=== PATIENT | female | born 1965 | race Two or more races ===

== ENCOUNTER 2024-05-25 09:15 | Inpatient (IN) | payer OTHER ==
[~2024-05-25] VITALS: Ht 152.4 cm; Wt 105.7 kg
[2024-05-25 10:22] LABS: Basophils # (auto) 0.1 10 ^3/uL (0-0.2); Basophils % (auto) 0.5 % (0.0-2.0); Eosinophils # (auto) 0.3 10 ^3/uL (0-0.8); Eosinophils % (auto) 2.5 % (0.0-7.0); Hematocrit 35.6 % (36.0-46.0); Lymphocytes % (auto) 17.2 % (10.0-50.0); Mean Corpuscular Hgb Conc. 33.7 g/dL (32.0-36.0); Mean Corpuscular Volume 88.9 fL (80.0-100.0); Monocytes # (auto) 1.5 10 ^3/uL (0-1.3); Monocytes % (auto) 12.3 % (0.0-12.0); Neutrophils % (auto) 67.5 % (37.0-80.0); Platelet Count (auto) 182 10^3/uL (140-450); Red Cell Distribution Width 14.9 % (11.8-14.3); White Blood Cell 11.8 10^3/uL (4.4-10.8)
[2024-05-25 10:32] LABS: Chloride 96 mmol/L (98-107); Potassium 3.4 mmol/L (3.5-5.1); Sodium 131 mmol/L (136-145)
[2024-05-25 10:33] LABS: Anion Gap 9 (5-15); Carbon Dioxide 26 mmol/L (20-31)
[2024-05-25 10:34] LABS: Calcium 9.2 mg/dL (8.7-10.4)
[2024-05-25 10:38] LABS: Glucose 198 mg/dL (74-106)
[2024-05-25 10:39] LABS: BUN/Creatinine Ratio 8.7 (10.0-20.0); Blood Urea Nitrogen 12 mg/dL (9-23)
[2024-05-25] MEDS: POTASSIUM EFFERVESENT TAB 25 MEQ PO ONE (11:47)
[2024-05-25] MEDS: PANTOPRAZOLE 40 MG TAB PO ONE (11:47)
[2024-05-25] MEDS ORDERED: NITROGLYCERIN 0.4 MG SL TAB SL PRN (13:00)
[2024-05-25] MEDS: SODIUM CHLORIDE 0.9% 1,000 ML IV SCH (13:00)
[2024-05-25] MEDS ORDERED: MORPHINE SULFATE INJ 2 MG/ml SYRG IV PRN (13:00)
[2024-05-25] MEDS ORDERED: DOCUSATE SOD 100 MG CAP PO PRN (13:00)
[2024-05-25] MEDS: PANTOPRAZOLE 40 MG/10 ML VIAL INJ IV ONE (13:00)
[2024-05-25] MEDS ORDERED: ONDANSETRON HCL 4 MG/2 ML VIAL IV PRN (13:00)
[2024-05-25] MEDS ORDERED: DEXTROSE (50%) 50ML SYRG IV PRN (13:00)
[2024-05-25 13:38] LABS: Magnesium 1.6 mg/dL (1.6-2.6)
[2024-05-25 13:40] LABS: Phosphorus 1.5 mg/dL (2.4-5.1)
[2024-05-25 16:26] VITALS: PULSE 101; RESP 16; O2SAT 94
[2024-05-25] MEDS ORDERED: METF-370 PO (16:56)
[2024-05-25] MEDS ORDERED: AML5T PO (16:56)
[2024-05-25] MEDS ORDERED: LEVO-849 PO (16:56)
[2024-05-25] MEDS ORDERED: LISI20TA56 PO (16:56)
[2024-05-25 17:00] VITALS: BP 100/49; PULSE 103; RESP 17; TEMP 98.6; O2SAT 93
[2024-05-25] MEDS: ACCU-CHEK COMFORT CURVE STRIP VI SCH (17:47)
[2024-05-25] MEDS: InsuLIN REG 1unit/0.01ml Soln (100units/ml) SC SCH (17:48)
[2024-05-25 21:00] VITALS: BP 132/78; PULSE 78; RESP 18; TEMP 98.7; O2SAT 98
[2024-05-26 01:00] VITALS: BP 105/55; PULSE 105; RESP 16; TEMP 102; O2SAT 90
[2024-05-26 03:38] LABS: Urine Bacteria FEW /hpf (None Seen); Urine Blood TRACE /uL (Negative); Urine Clarity Turbid (Clear); Urine Color Colorless (Yellow); Urine Protein, UAD TRACE (Negative); Urine Specific Gravity 1.008 (1.001-1.035); Urine Urobilinogen Normal (Negative); Urine WBC 159 /hpf (0 - 5); Urine WBC Clumps PRESENT /hpf (None Seen); Urine pH 7.5 (5.0-9.0)
[2024-05-26 05:00] VITALS: BP 115/96; PULSE 107; RESP 18; TEMP 100.3; O2SAT 81
[2024-05-26 06:45] VITALS: TEMP 99.5
[2024-05-26] MEDS ORDERED: PIPERACILLIN-TAZOB 3.375GM 100 ML IV SCH (07:15)
[2024-05-26] MEDS ORDERED: BACDST PO (07:20)
[2024-05-26] MEDS: PIPERACILLIN-TAZOB 3.375GM 100 ML IV SCH (07:39)
[2024-05-26 07:49] LABS: Basophils # (auto) 0 10 ^3/uL (0-0.2); Basophils % (auto) 0.3 % (0.0-2.0); Eosinophils # (auto) 0.3 10 ^3/uL (0-0.8); Eosinophils % (auto) 2.6 % (0.0-7.0); Hematocrit 33.7 % (36.0-46.0); Hemoglobin 11.4 g/dL (12.2-16.2); Lymphocytes # (auto) 2.1 10 ^3/uL (0.4-5.4); Lymphocytes % (auto) 17.2 % (10.0-50.0); Mean Corpuscular Hemoglobin 29.9 pg (28.0-32.0); Mean Corpuscular Hgb Conc. 33.7 g/dL (32.0-36.0); Mean Corpuscular Volume 88.6 fL (80.0-100.0); Monocytes # (auto) 1.9 10 ^3/uL (0-1.3); Monocytes % (auto) 15.1 % (0.0-12.0); Neutrophils # (auto) 8.1 10 ^3/uL (1.6-8.6); Neutrophils % (auto) 64.8 % (37.0-80.0); Platelet Count (auto) 194 10^3/uL (140-450); Red Cell Distribution Width 14.5 % (11.8-14.3); White Blood Cell 12.5 10^3/uL (4.4-10.8)
[2024-05-26 08:17] LABS: Alanine Aminotransferase 49 U/L (7-40); Albumin 3.9 g/dL (3.2-4.8); Alkaline Phosphatase 88 U/L (46-116); Anion Gap 9 (5-15); BUN/Creatinine Ratio 6.7 (10.0-20.0); Blood Urea Nitrogen 9 mg/dL (9-23); Carbon Dioxide 26 mmol/L (20-31); Chloride 100 mmol/L (98-107); Glucose 126 mg/dL (74-106); Potassium 3.1 mmol/L (3.5-5.1); Sodium 135 mmol/L (136-145)
[2024-05-26 08:18] LABS: Aspartate Aminotransferase 31 U/L (13-40); Bilirubin, Total 0.9 mg/dL (0.2-1.0); Total Protein 6.7 g/dL (5.7-8.2)
[2024-05-26 09:00] VITALS: BP 161/70; PULSE 104; RESP 21; TEMP 101.8; O2SAT 94
[2024-05-26] MEDS: ACETAMINOPHEN 325 MG TAB PO PRN (09:15)
[2024-05-26] MEDS: PANTOPRAZOLE 40 MG/10 ML VIAL INJ IV SCH (09:15)
[2024-05-26] MEDS: POTASSIUM CHL 20 Meq TABLET PO ONE (09:30)
[2024-05-26] MEDS: ERTAPENEM SOD INJ 1 GM in SODIUM CHL 0.9% 50 ML IV ONE (11:56)
[2024-05-26 12:59] VITALS: BP 115/73; PULSE 97; RESP 18; TEMP 97.8; O2SAT 90
[2024-05-26 13:00] VITALS: BP 115/73; PULSE 97; RESP 18; TEMP 97.8; O2SAT 90
== END 2024-05-26 14:15 | disposition home or self-care (01) | DRG 241 ==
LOC: ER 09:15 → OVERFLOW 12:55 → CENTRAL 15:36
PROVIDERS: ADMIT Nurse Practitioner Family; ATTEND Internal Medicine
DX: K29.00 Acute gastritis without bleeding (principal); E87.1 Hypo-osmolality and hyponatremia; E11.65 Type 2 diabetes mellitus with hyperglycemia; E78.5 Hyperlipidemia, unspecified; D72.829 Elevated white blood cell count, unspecified; E87.5 Hyperkalemia; N39.0 Urinary tract infection, site not specified; Z90.49 Acquired absence of other specified parts of digestive tract
CPT/HCPCS: 36415; 74176; 80048; 80053; 81001; 82962; 83036; 83690; 83735; 84100; 84484; 85025; 99291; G0378; J1335; J1815; J2470; J2543

== ENCOUNTER 2024-12-24 05:41 | Emergency (ER) | payer OTHER ==
[~2024-12-24] VITALS: Ht 144.8 cm; Wt 96.0 kg
[~2024-12-24 05:41] MED LIST: AML5T PO; BACDST PO; LEVO-849 PO; LISI20TA56 PO; METF-370 PO; NITR-87 PO; PANT40TA2 PO
[2024-12-24] MEDS ORDERED: ONDANSETRON ODT 4 MG TAB PO ONE (06:30)
--- NOTE | 2024-12-24 06:39 | ED.PDOC ---
GI ASSESSMENT HPI Comments 59 year old female presents to the ED with chief complaint of N/V and abdominal pain. Patient reports that she has been experiencing epigastric abdominal pain for the past 15 days, along with nausea and vomiting for the past 3 days, being unable to consume any food or drink. Patient relays that she has had similar episodes twice a month for the past 5 months. Patient states she had an endoscopy performed on 12/15/24, however, she has not received results yet for it from her GI doctor. Patient notes she is currently constipated. Patient reports eating tortillas worsens her pain. Patient denies any diarrhea, fever, chills, hematemesis, chest pain, or dysuria. Chief Complaint: Nausea/Vomiting Time Seen by MD: 06:31 Reviewed Notes: Nurses Notes, Medications, Allergies Allergies: Coded Allergies: NO KNOWN ALLERGIES (Unverified , 05/25/24) Home Meds Active Scripts Pantoprazole Sodium Sesquihydr (Protonix) 40 Mg Tab, 40 MG PO DAILY for 5 Days, #5 TAB Prov:ODILIA DAWN MD 06/11/24 Nitrofurantoin Monohydrate Mac (Macrobid) 100 Mg Cap, 100 MG PO BID for 10 Days, #20 CAP Prov:ODILIA DAWN MD 06/11/24 Sulfamethoxazole W/Trimethopri (Bactrim Ds Tablet) 1 Tab Tb, 1 TAB PO BID for 10 Days, #20 TAB Prov:TIA CARLOS MD 05/26/24 Reported Medications Amlodipine Besylate (NORVASC TABLET) 5 Mg Tb, 1 TAB PO DAILY, #30 TAB 5 Refills 05/25/24 Lisinopril (Lisinopril) 20 Mg Tab, 0.5 TAB PO DAILY, #30 TAB 5 Refills 05/25/24 Levothyroxine Sodium (SYNTHROID TABLET) 100 Mcg Tb, 1 TAB PO DAILY, #30 TAB 5 Refills 05/25/24 Metformin Hydrochloride (Metformin Hcl) 500 Mg Tab, 1 TAB PO BID, #60 TAB 3 Refills 05/25/24 Information Source: Patient Mode of Arrival: Ambulatory Timing: Weeks Duration: Since onset Quality: Sharp Vomitus: Watery Stool: Impaction Severity: Moderate Recent: None Recent Hx of: None Pain Location: Epigastric Modifying Factors: Nothing Associated sign and symptoms: Nausea, Vomiting, Abdominal Pain Past Medical History PAST MEDICAL HISTORY: DM, High Lipids, HTN Past Medical History (Other): chronic abdominal pain Surgical History: Cholecystectomy Surgical History (Other): Endoscopy 12/15/24 TALENT ACQUISITION COORDINATOR History: No Pertinent TALENT ACQUISITION COORDINATOR History Family History Family History: Reviewed,noncontributory to illness Social History Smoker: Non-Smoker Alcohol: Denies ETOH Use Drugs: Denies Drug Use Lives In: Home Constitutional: denies: chills, diaphoresis, fatigue, fever, malaise, sweats, weakness, others EENTM: denies: blurred vision, double vision, ear bleeding, ear discharge, ear drainage, ear pain, ear ringing, eye pain, eye redness, hearing loss, mouth pain , mouth swelling, nasal discharge, nose bleeding, nose congestion, nose pain, photophobia, tearing, throat pain, throat swelling, voice changes, others Respiratory: denies: cough, hemoptysis, orthopnea, SOB at rest, shortness of breath, SOB with excertion, stridor, wheezing, others Cardiovascular: denies: chest pain, dizzy spells, diaphoresis, Dyspnea on exertion, edema, irregular heart beat, left arm pain, lightheadedness, palpitations, PND, syncope, others Gastrointestinal: reports: abdominal pain, constipated, nausea, vomiting; denies: abdomen distended, blood streaked bowels, diarrhea, dysphagia, difficulty swallowing, hematemesis, melena, poor appetite, poor fluid intake, rectal bleeding, rectal pain, others Genitourinary: denies: abnormal vagina bleeding, burning, dyspareunia, dysuria, flank pain, frequency, hematuria, incontinence, pain, , vagina discharge, urgency, others Neurological: denies: dizziness, fainting, headache, left sided numbness, left sided weakness, numbness, paresthesia, pre-existing deficit, right sided numbness, right sided weakness, seizure, speech problems, tingling, tremors, weakness, others Musculoskeletal: denies: back pain, gout, joint pain, joint swelling, muscle pain, muscle stiffness, neck pain, others Integumetry: denies: bruises, change in color, change in hair/nails, dryness, laceration, lesions, lumps, rash, wounds, others Allergic/Immunocompromised: denies: Difficulty Healing, Frequent Infections, Hives, Itching, others Hematologic/Lymphatic: denies: anemia, blood clots, easy bleeding, easy bruising, swollen glands, others Endocrine: denies: excessive hunger, excessive sweating, excessive thirst, excessive urination, flushing, intolerance to cold, intolerance to heat, unexplained weight gain, unexplained weight loss, others Psychiatric: denies: anxiety, bipolar disorder, depression, hopeless, panic disorder, schizophrenia, sleepless, suicidal, others All Other Systems: Reviewed and Negative Physical Exam General Appearance: No Apparent Distress, Normal HEENT: Normal ENT Inspection, Pharynx Normal, TMs Normal Neck: Full Range of Motion, Non-Tender, Normal, Normal Inspection Respiratory: Chest Non-Tender, Lungs Clear, No Accessory Muscle Use, No Respiratory Distress, Normal Breath Sounds Cardiovascular: No Edema, No JVD, No Murmur, No Gallop, Normal Peripheral Pulses, Regular Rate/Rhythm Breast Exam: Deferred Gastrointestinal: No Organomegaly, Non Tender, No Pulsatile Mass, Normal Bowel Sounds, Soft Genitalia: Deferred Pelvic: Deferred Rectal: Deferred Extremities: No calf tenderness, Normal capillary refill, Normal inspection, Normal range of motion, Non-tender, No pedal edema Musculoskeletal : Apperance: Normal Neurologic: Alert, travograph operator II-XII nml as Tested, No Motor Deficits, Normal Affect, Normal Mood, No Sensory Deficits Cerebellar Function: Normal Reflexes: Normal Skin: Dry, Normal Color, Warm Lymphatic: No Adenopathy Was a procedure done? Was a procedure done?: No GI differential Dx Differential Diagnosis: Bowel Obstruction, Constipation, Diverticular disease, Gastritis/PUD, Gastroenteritis, Hernia, Hepatitis, Inflammatory BD, Ischemic Bowel, Pancreatitis, UTI, Dehydration, Electrolyte Imbalance, Food Poisoning, Bacterial, Viral, Impaction, Kidney Stone X-Ray, Labs, Meds, VS Vital Signs Date Time Temp Pulse Resp B/P (MAP) Pulse Ox O2 Delivery O2 Flow Rate FiO2 12/24/24 07:31 98.0 98 24 113/72 (86) 98 98.0 12/24/24 07:31 98 22 94 Room Air 12/24/24 06:10 98.0 98 22 113/72 (86) 24 98.0 Lab Test 12/24/24 06:43 Range/Units White Blood Count 7.1 4.4-10.8 10^3/uL Red Blood Count 4.39 4.0-5.20 10^6/uL Hemoglobin 13.1 12.2-16.2 g/dL Hematocrit 37.7 36.0-46.0 % Mean Corpuscular Volume 85.7 80.0-100.0 fL Mean Corpuscular Hemoglobin 29.8 28.0-32.0 pg Mean Corpuscular Hemoglobin Concent 34.8 32.0-36.0 g/dL Red Cell Distribution Width 14.6 H 11.8-14.3 % Platelet Count 193 140-450 10^3/uL Mean Platelet Volume 9.2 6.9-10.8 fL Neutrophils (%) (Auto) 52.5 37.0-80.0 % Lymphocytes (%) (Auto) 32.0 10.0-50.0 % Monocytes (%) (Auto) 6.9 0.0-12.0 % Eosinophils (%) (Auto) 7.8 H 0.0-7.0 % Basophils (%) (Auto) 0.8 0.0-2.0 % Neutrophils # (Auto) 3.8 1.6-8.6 10 ^3/uL Lymphocytes # (Auto) 2.3 0.4-5.4 10 ^3/uL Monocytes # (Auto) 0.5 0-1.3 10 ^3/uL Eosinophils # (Auto) 0.6 0-0.8 10 ^3/uL Basophils # (Auto) 0.1 0-0.2 10 ^3/uL Nucleated Red Blood Cells 0.1 % Sodium Level 122 L 136-145 mmol/L Potassium Level 2.7 L 3.5-5.1 mmol/L Chloride Level 85 L 98-107 mmol/L Carbon Dioxide Level 27 20-31 mmol/L Anion Gap 10 5-15 Blood Urea Nitrogen 5 L 9-23 mg/dL Creatinine 0.82 0.550-1.02 mg/dL Glomerular Filtration Rate Calc 83 >90 mL/min BUN/Creatinine Ratio 6.1 L 10.0-20.0 Serum Glucose 135 H 74-106 mg/dL Calcium Level 9.1 8.7-10.4 mg/dL Total Bilirubin 0.5 0.2-1.0 mg/dL Aspartate Amino Transferase (AST) 63 H 13-40 U/L Alanine Aminotransferase (ALT) 60 H 7-40 U/L Alkaline Phosphatase 65 46-116 U/L Total Protein 6.6 5.7-8.2 g/dL Albumin 4.0 3.2-4.8 g/dL Lipase 40 12-53 U/L Current Medications Medications (Trade) Dose Ordered Sig/Benny Route Start Time Stop Time Status Last Admin Al Hydrox/Mg Hydrox/Simethicone (Maalox Plus) 15 ml ONCE ONCE PO 12/24/24 06:30 12/24/24 06:31 DC 12/24/24 07:24 Ondansetron HCl (Zofran) 4 mg ONCE ONCE IM 12/24/24 07:00 12/24/24 07:01 DC 12/24/24 07:24 CT Abd/Pel: FINDINGS: Lung bases: Atelectasis in the lung bases. Respiratory motion artifact limits evaluation for subtle findings. Liver: Hepatic steatosis. Mild hepatomegaly, with the liver measuring up to 16.5 cm in craniocaudal dimension at approximately the mid clavicular line. Biliary: Cholecystectomy. Spleen: Unremarkable. Pancreas: Mildly to moderately atrophic pancreas. Adrenal glands: Unremarkable. No mass. Kidneys: No hydronephrosis. No renal or ureteral calculi. Aorta/Vascular: Scattered mild atherosclerotic calcification. No abdominal aortic aneurysm. Retroperitoneum: No mass or lymphadenopathy. Bowel/mesentery: No small bowel obstruction. No free air or free fluid. Appendix is visualized and appears unremarkable. Scattered colonic diverticula without adjacent inflammatory changes to suggest diverticulitis. Small hiatal hernia. Pelvic organs: Grossly unremarkable. Bladder: Unremarkable. No mass. Abdominal wall: No mass or hernia. Bones: No acute fracture or suspicious intraosseous lesion. IMPRESSION: 1. Scattered colonic diverticula without adjacent inflammatory changes to suggest diverticulitis. 2. Hepatic steatosis and mild hepatomegaly. 3. Small hiatal hernia. 4. Additional nonacute findings as detailed above. Images Reviewed?: Images reviewed and evaluated by me Time of 1ST Reevaluation: 07:31 Reevaluation 1ST: Unchanged Time of 2ND Reevaluation: 07:53 Reevaluation 2ND: Improved Patient Education/Counseling: Diagnosis, Treatment, Prognosis, Need For Follow Up Family Education/Counseling: No Family Present Additional Information Previous visits: 06/11/24 for gastritis The following tests were ordered, and results were reviewed by me: CT Abd/Pel, UA, Lipase, CBC, CMP Additional Information was gathered from interviewing the following independent historians: None I reviewed and agreed with the following test results read by other providers: CT Abd/Pel I discussed treatment and results with medical personnel and: Patient Comprehensive systems review obtained and negative except for what is stated in the HPI. Departure 1 Departure Time of Disposition: 07:54 Impression: Primary Impression: Chronic abdominal pain Additional Impression: Constipation Qualified Codes: K59.01 - Slow transit constipation Disposition: HOME / SELF CARE / HOMELESS Condition: Good e-Prescriptions Docusate Sodium (Colace) 100 Mg Cap 1 CAP PO BID, #30 CAP Prov: DINO BRYANT MD 12/24/24 Polyethylene Glycol 3350 (Miralax) 17 Gm Pow 17 GM PO DAILY PRN for 3 Days, #3 POW Prov: DINO BRYANT MD 12/24/24 Discharged With: Self Critical Care Note Critical Care Time?: No Stability Stability form required: No Heart Score Heart Score: Heart Score Response (Comments) Value History N/A 0 EKG N/A 0 Age N/A 0 Risk Factors N/A 0 Troponin N/A 0 Total 0 I personally scribed for DINO BRYANT MD ([email or web address]) on 12/24/24 at 06:39. Electronically submitted by Nimesh Amaya ([employer]). I personally scribed for DINO BRYANT MD ([email or web address]) on 12/24/24 at 07:38. Electronically submitted by Nimesh Amaya ([employer]). DINO BRYANT MD Dec 24, 2024 06:39
[2024-12-24 06:59] LABS: Basophils # (auto) 0.1 10 ^3/uL (0-0.2); Basophils % (auto) 0.8 % (0.0-2.0); Eosinophils # (auto) 0.6 10 ^3/uL (0-0.8); Eosinophils % (auto) 7.8 % (0.0-7.0); Hematocrit 37.7 % (36.0-46.0); Hemoglobin 13.1 g/dL (12.2-16.2); Lymphocytes # (auto) 2.3 10 ^3/uL (0.4-5.4); Mean Corpuscular Hemoglobin 29.8 pg (28.0-32.0); Mean Corpuscular Hgb Conc. 34.8 g/dL (32.0-36.0); Mean Corpuscular Volume 85.7 fL (80.0-100.0); Monocytes # (auto) 0.5 10 ^3/uL (0-1.3); Monocytes % (auto) 6.9 % (0.0-12.0); Neutrophils # (auto) 3.8 10 ^3/uL (1.6-8.6); Neutrophils % (auto) 52.5 % (37.0-80.0); Nucleated Red Blood Cells % 0.1 %; Platelet Count (auto) 193 10^3/uL (140-450); Red Blood Cells 4.39 10^6/uL (4.0-5.20); Red Cell Distribution Width 14.6 % (11.8-14.3); White Blood Cell 7.1 10^3/uL (4.4-10.8)
[2024-12-24 07:14] LABS: Alkaline Phosphatase 65 U/L (46-116); Anion Gap 10 (5-15); BUN/Creatinine Ratio 6.1 (10.0-20.0); Calcium 9.1 mg/dL (8.7-10.4); Carbon Dioxide 27 mmol/L (20-31); Lipase 40 U/L (12-53); Total Protein 6.6 g/dL (5.7-8.2)
[2024-12-24 07:15] LABS: Bilirubin, Total 0.5 mg/dL (0.2-1.0)
[2024-12-24 07:16] LABS: Alanine Aminotransferase 60 U/L (7-40); Aspartate Aminotransferase 63 U/L (13-40); Blood Urea Nitrogen 5 mg/dL (9-23); Chloride 85 mmol/L (98-107); Glucose 135 mg/dL (74-106); Potassium 2.7 mmol/L (3.5-5.1); Sodium 122 mmol/L (136-145)
[2024-12-24] MEDS: MAALOX PLUS or MAALOX 30 ML PO ONE (07:24)
[2024-12-24] MEDS: ONDANSETRON HCL 4 MG/2 ML VIAL IM ONE (07:24)
[2024-12-24 07:31] VITALS: BP 113/72; PULSE 98; RESP 22; TEMP 98; O2SAT 94
--- NOTE | 2024-12-24 07:34 | DVH ---
CLINICAL INFORMATION: 59 years old, Female; epigastric pain. TECHNIQUE: Axial CT images of the abdomen and pelvis were obtained without IV contrast. Coronal and s agittal reformatted images were obtained, reviewed, and stored. Evaluation of the parenchymal organs is limited without IV contrast. Evaluation of the bowel and mesentery is limited without oral contras t. All CT scans at this medical facility are performed using dose modulation techniques as appropriat e to a performed exam including the following: Automated exposure control was utilized; adjustment of the MA and/or KV according to patient size; and use of iterative reconstruction technique. CTDIvol = 27.53 mGy DLP = 1486.41 mGy-cm COMPARISON: CT CT AB PEL WO CON-NO ORAL OR IV on DOS: 05/25/24 FINDINGS: Lung bases: Atelectasis in the lung bases. Respiratory motion artifact limits evaluation for subtle f indings. Liver: Hepatic steatosis. Mild hepatomegaly, with the liver measuring up to 16.5 cm in craniocaudal d imension at approximately the mid clavicular line. Biliary: Cholecystectomy. Spleen: Unremarkable. Pancreas: Mildly to moderately atrophic pancreas. Adrenal glands: Unremarkable. No mass. Kidneys: No hydronephrosis. No renal or ureteral calculi. Aorta/Vascular: Scattered mild atherosclerotic calcification. No abdominal aortic aneurysm. Retroperitoneum: No mass or lymphadenopathy. Bowel/mesentery: No small bowel obstruction. No free air or free fluid. Appendix is visualized and ap pears unremarkable. Scattered colonic diverticula without adjacent inflammatory changes to suggest d iverticulitis. Small hiatal hernia. Pelvic organs: Grossly unremarkable. Bladder: Unremarkable. No mass. Abdominal wall: No mass or hernia. Bones: No acute fracture or suspicious intraosseous lesion. IMPRESSION: 1. Scattered colonic diverticula without adjacent inflammatory changes to suggest diverticulitis. 2. Hepatic steatosis and mild hepatomegaly. 3. Small hiatal hernia. 4. Additional nonacute findings as detailed above.
[2024-12-24] MEDS ORDERED: DOCU-94 PO (07:55)
[2024-12-24] MEDS ORDERED: POLY335015 PO (07:55)
[2024-12-24] MEDS: POTASSIUM CHL 20 Meq TABLET PO ONE (08:08)
== END 2024-12-24 08:09 | disposition home or self-care (01) ==
LOC: ER 05:41 → EDUNIT# 05:41 → ER 08:09
DX: G89.29 Other chronic pain (principal); R10.13 Epigastric pain; K59.00 Constipation, unspecified; I10 Essential (primary) hypertension; E11.9 Type 2 diabetes mellitus without complications; Z79.84 Long term (current) use of oral hypoglycemic drugs; Z90.49 Acquired absence of other specified parts of digestive tract; Z79.899 Other long term (current) drug therapy
CPT/HCPCS: 36415; 74176; 80053; 83690; 85025; 96372; 99285; J2405

== ENCOUNTER 2025-04-19 22:58 | Emergency (ER) | payer OTHER ==
[~2025-04-19] VITALS: Ht 144.8 cm; Wt 90.9 kg
[~2025-04-19 22:58] MED LIST changes: +DOCU-94 PO; +POLY335015 PO
--- NOTE | 2025-04-19 23:17 | ECG ---
[facility] Test Date: 2025-04-19 Test Time: 23:16:39 Pat Name: NETTIE STEPHENS Department: ED Room: Gender: F Muffle Operator: ARMAAN : 1965 Requested By: OTTONIEL TORRES Order Number: [id number] Reading MD: Measurements Intervals [place] Rate: 93 P: 55 [place]: 141 QRS: 37 QRSD: 98 T: 13 QT: 394 QTc: 491 Interpretive Statements Sinus rhythm Borderline prolonged QT interval Please click the below link to view image of tracing.
--- NOTE | 2025-04-19 23:19 | ED.PDOC ---
SOB-HPI HPI Comments HPI: 59-year-old female came to the ER for hyperglycemia. Patient denies history of diabetes, takes Metformin regularly for it. States for the past few hours, she has been short of breath, with the episodes of nausea. Denies any vomiting. Blood sugar taken at home read high. Upon arrival to the ER blood sugar was 488 Initial Vitals BP: 125/73 HR: 97 RR: 22 O2: 94% Temp: 98.2 Past Medical History: Diabetes, dyslipidemia, thyroid disease Past Surgical History: Cholecystectomy, knee surgery Social History: Denies ETOH, smoking, and drug use. Medications: Metformin Allergies: GAGE: HPI: Poor Historian. REVIEW OF SYSTEMS: CONSTITUTIONAL: Denies acute: fever, diaphoresis, chills, HEAD: Denies acute: headache, photophobia Eyes: Denies acute: Double vision, vision loss, eye pain, eye discharge. EARS: Denies acute: tinnitus, hearing loss, ear discharge, ear pain, THROAT: Denies acute: sore throat, swelling, difficulty swallowing , pain with swallowing, change in voice. NECK: Denies acute: neck pain, neck swelling, stiff neck. HEART: Denies acute : chest pain, palpitations, LUNGS: Denies acute: wheezing, cough, hemoptysis ABDOMEN: Denies acute: abdominal pain, Nausea, Vomiting, diarrhea, melena , hematemesis, hematochezia SKIN: Denies acute: rash, redness, lesions, itchiness. EXTREMITIES: Denies acute: calf pain, numbness, tingling, weakness, denies pain in extremity. Denies acute: Low back pain. Neuro: Denies acute: focal neurological deficit, motor or sensory focal neurological deficit, tremors, seizure like activity, confusion, dizziness, change in mental status, loss of bowel or bladder function, cauda equina like symptoms. : Denies acute: dysuria, hematuria, flank pain, increase in urinary frequency. PSYCH: Denies acute: hallucination, suicidal ideation, homicidal ideation. FEMALE: Denies acute: abnormal vaginal bleeding, foul odor, unusual discharge. PHYSICAL EXAM: General: -----mild---acute distress, awake and alert. Head: normocephalic, atraumatic. Neck: supple, trachea is midline, no swelling. Throat: Normal phonation. Eyes:, no erythema, no purulent discharge, no proptosis, no icterus. Heart: regular rate, regular rhythm, no significant murmur appreciated. Lungs: no apparent respiratory distress, Able to speak in full sentences. No wheezing, no rhonchi, no crackles. No stridors Clear to auscultation bilaterally. Abdomen: non tender to palpation, non distended, soft, no guarding, no rebound, + bowel sounds. Obese Neuro: Awake, Alert, oriented to name, self, situation, follows commands GCS=15. Speech is normal. Skin: no petechia, no purpura, no cyanosis, non-pale, not jaundice. Lower extremities: --no - Pitting edema no deformity, no focal swelling, no calf TTP. Makes eye contact. moves all four extremities. Face: no apparent facial droop. ED COURSE: DISCLAIMER: This medical document was created using an electronic medical record system with voice recognition software and computerized dictation system. Although this document has been carefully reviewed, there might still be some phonetic and typographical errors. Occasional wrong-word or "sound-alike" substitutions may have occurred due to the inherent limitations of voice recognition software. These areas are purely typographical due to imperfections of the software programs and do not reflect any compromise in the patient's medical care. Please read the chart carefully and recognize, using context, where these substitutions have occurred. Chief Complaint: Hyperglycemia Time Seen by MD: 23:16 Reviewed notes: Allergies Information Source: Patient Mode of Arrival: Ambulatory Past Medical History PAST MEDICAL HISTORY: DM, High Lipids, Thyroid Surgical History: Cholecystectomy CERTIFIED LOW VISION THERAPIST History: No Pertinent CERTIFIED LOW VISION THERAPIST History Family History Family History: Reviewed,noncontributory to illness Social History Smoker: Non-Smoker Alcohol: Denies ETOH Use Drugs: Denies Drug Use Lives In: Home EKG EKG : Pulse Rate (adult): 93 Cardiac Rhythm: NSR Was a procedure done? Was a procedure done?: No X-Ray, Labs, Meds, VS Vital Signs Date Time Temp Pulse Resp B/P (MAP) Pulse Ox O2 Delivery O2 Flow Rate FiO2 04/20/25 03:10 97.9 89 16 113/74 (87) 94 97.9 04/19/25 23:24 93 04/19/25 23:16 93 04/19/25 22:59 98.2 97 22 125/73 94 98.2 Lab Test 04/20/25 03:48 04/20/25 02:50 04/20/25 02:34 04/20/25 00:28 Range/Units Urine Color Light-yellow Yellow Urine Clarity Clear Clear Urine pH 6.0 5.0-9.0 Urine Specific [place] > 1.050 H 1.001-1.035 Urine Protein Trace H Negative Urine Ketones Negative Negative Urine Blood Negative Negative /uL Urine Nitrite Negative Negative Urine Bilirubin Negative Negative Urine Urobilinogen Normal Negative mg/dL Urine Leukocyte Esterase Trace Negative /uL Urine RBC 12 0 - 4 /hpf Urine Microscopic WBC 18 H 0-5 /HPF Urine Squamous Epithelial Cells Few <5 /hpf Urine Bacteria None seen None Seen /hpf Urine Glucose 4+ H Normal mg/dL Troponin I High Sensitivity < 3 L < 3 L </=34 ng/L Blood Gas Specimen Type Arterial Blood Gas Sample Site Left brachial Blood Gas Patient Temperature 37.0 Arterial Blood Date Drawn [id number] Arterial Blood pH 7.462 H 7.350-7.450 Arterial Blood Partial Pressure CO2 33.4 32.0-45.0 mmHg Arterial Blood Partial Pressure O2 74.1 L 83.0-108.0 mmHg Arterial Blood HCO3 23.3 21.0-28.0 mmol/L Arterial Blood Oxygen Saturation 94.9 94.0-98.0 % Arterial Blood Base Excess 0.2 -2.0-3.0 mmol/L Arterial Blood Oxyhemoglobin 93.7 L 94.0-98.0 % Arterial Blood Carboxyhemoglobin 0.7 0.5-1.5 % Arterial Blood Methemoglobin 0.6 0.0-1.5 % Wil Test N/a Blood Gas Total Hemoglobin 13.90 12.0-16.0 g/dL Blood Gas Modality Room air FiO2 % 21.0 Test 04/19/25 23:36 Range/Units White Blood Count 10.0 4.4-10.8 10^3/uL Red Blood Count 4.60 4.0-5.20 10^6/uL Hemoglobin 13.8 12.2-16.2 g/dL Hematocrit 41.3 36.0-46.0 % Mean Corpuscular Volume 89.7 80.0-100.0 fL Mean Corpuscular Hemoglobin 29.9 28.0-32.0 pg Mean Corpuscular Hemoglobin Concent 33.3 32.0-36.0 g/dL Red Cell Distribution Width 16.2 H 11.8-14.3 % Platelet Count 247 140-450 10^3/uL Mean Platelet Volume 11.4 H 6.9-10.8 fL Neutrophils (%) (Auto) 52.1 37.0-80.0 % Lymphocytes (%) (Auto) 36.5 10.0-50.0 % Monocytes (%) (Auto) 7.0 0.0-12.0 % Eosinophils (%) (Auto) 3.6 0.0-7.0 % Basophils (%) (Auto) 0.8 0.0-2.0 % Neutrophils # (Auto) 5.2 1.6-8.6 10 ^3/uL Lymphocytes # (Auto) 3.7 0.4-5.4 10 ^3/uL Monocytes # (Auto) 0.7 0-1.3 10 ^3/uL Eosinophils # (Auto) 0.4 0-0.8 10 ^3/uL Basophils # (Auto) 0.1 0-0.2 10 ^3/uL Nucleated Red Blood Cells 0.1 % D-Dimer, Quantitative 1.00 H 0.0-0.49 mg/L FEU Sodium Level 129 L 136-145 mmol/L Potassium Level 3.3 L 3.5-5.1 mmol/L Chloride Level 90 L 98-107 mmol/L Carbon Dioxide Level 25 20-31 mmol/L Anion Gap 14 5-15 Blood Urea Nitrogen 19 9-23 mg/dL Creatinine 1.52 H 0.550-1.02 mg/dL Glomerular Filtration Rate Calc 40 >90 mL/min BUN/Creatinine Ratio 12.5 10.0-20.0 Serum Glucose 535 *H 74-106 mg/dL Calcium Level 9.3 8.7-10.4 mg/dL Magnesium Level 1.6 1.6-2.6 mg/dL Total Bilirubin 0.5 0.2-1.0 mg/dL Aspartate Amino Transferase (AST) 60 H 13-40 U/L Alanine Aminotransferase (ALT) 135 H 7-40 U/L Alkaline Phosphatase 98 46-116 U/L Troponin I High Sensitivity < 3 L </=34 ng/L B-Type Natriuretic Peptide 4.26 0-100 pg/mL Total Protein 7.4 5.7-8.2 g/dL Albumin 4.6 3.2-4.8 g/dL Beta-Hydroxybutyric Acid 0.238 < 0.4 mmol/L [facility] [id number] [place] [id number] Ph: [phone] DIAGNOSTIC IMAGING Diagnostic Imaging Report : [id number] Signed PATIENT: NETTIE MCCOY ACCT: [id number] UNIT: [id number] : 1965 LOC: ER ROOM / BED: / AGE / SEX: 59 / F ADM STATUS: REG ER SERVICE 4 ORDERING PHYSICIAN: OTTONIEL TORRES DO PROCEDURE(s): CTACH - CT ANGIO CHEST CONTRAST REASON: sob ORDER NUMBER(s): [id number], ACCESSION NUMBER(s): [id number] Procedure: CT CT ANGIO CHEST CONTRAST Reason for study/Clinical History: sob Comparison Study: None Exam Date: 04/20/2025 02:[address] Angio Chest with Contrast TECHNIQUE: Multiple axial CT images of chest was performed following intravenous contrast administration and coronal reformatting was performed. 3-D/MIP images were obtained. Radiation Dose : CTDI volume is 28.79 mGy. Dose-length product is 1112.76 mGy*cm FINDINGS: Pulmonary Arteries: There are no filling defects within main, lobar, segmental and visualized subsegmental branch pulmonary arteries. There is normal dimensional of main PA. Lungs: There is no peripheral pulmonary infarction, consolidation, pleural effusion, or right heart strain. There is no pneumothorax or pneumomediastinum. Aorta and Vasculature: There is normal caliber of thoracic aorta without evidence of aortic dissection, intramural hematoma or aneurysm. Lymph Nodes: There is no significant intrathoracic or axillary lymphadenopathy on CT size criteria. Lower Neck: Visualized portions of the thyroid gland are unremarkable. Mediastinum: Heart size is normal. There is no pericardial effusion. The esophagus is unremarkable. Musculoskeletal: No aggressive focal bony lesions, acute fractures or dislocation. Chest wall: Unremarkable Partially visualized upper abdomen is grossly unremarkable. IMPRESSION: No evidence of acute or chronic pulmonary embolism. END IMPRESSION: All CT scans at this medical facility are performed using dose modulation techniques as appropriate to a performed exam including the following: Automated exposure control was utilized; adjustment of the MA and/or KV according to patient size; and use of iterative reconstruction technique. ATED BY: MAURISIO LARA MD DICTATED DATE/TIME: 04/20/25406 SIGNED BY: MAURISIO LARA MD SIGNED DATE/TIME: 04/20/25406 CC: [place] [id number] Ph: [phone] DIAGNOSTIC IMAGING Diagnostic Imaging Report : [id number] Signed PATIENT: NETTIE MCCOY ACCT: [id number] UNIT: [id number] : 1965 LOC: ER ROOM / BED: / AGE / SEX: 59 / F ADM STATUS: REG ER SERVICE 11 ORDERING PHYSICIAN: OTTONIEL TORRES DO PROCEDURE(s): CXRP - CHEST PORTABLE REASON: sob ORDER NUMBER(s): [id number], ACCESSION NUMBER(s): [id number] CHEST RADIOGRAPH Indication: sob Technique: Single frontal view of the chest was obtained Comparison: None FINDINGS: Lines and Tubes: None Lungs: No focal consolidation. Pleura: No effusion. No pneumothorax. Cardiomediastinal contours: Unremarkable Bones: No acute osseous abnormality. IMPRESSION: 1. No acute cardiopulmonary disease. ATED BY: ABEL LEVINE MD DICTATED DATE/TIME: 04/20/25231 SIGNED BY: ABEL LEVINE MD SIGNED DATE/TIME: 04/20/25231 CC: Time of 1ST Reevaluation: 23:17 Reevaluation 1ST: Unchanged Time of 2ND Reevaluation: 01:56 (The case was discussed with the admitting team (HPI, physical exam, labs and diagnostic tests that were available at the time of disposition, ED course, treatment plan) on the phone. They agreed to admit the patient to their service and assume care of this patient from this point forward. --- [place]) Patient Education/Counseling: Diagnosis, Treatment Family Education/Counseling: No Family Present SEPSIS Sepsis Screen Date sepsis recognized/suspect: Apr 19, 2025 Time Sepsis recognized/suspect: 2258 Recent Procedure: No On Antibiotic Therapy: No Respiratory Rate >20: Yes Heart Rate >90: Yes Temp<36 C (96.8 F) or >38.3 C: No SBP <90 or MAP <65 mmHG: No New Acute Mental Status Change: No Is the patient on CPAP, BIPAP,: No Physician Orders Pbx Manager (04/19/25 ) Chest Portable (04/19/25 23:12) Electrocardigram (04/20/25 00:12) Electrocardigram (04/20/25 02:12) Ct Angio Chest Contrast (04/20/25 01:55) Abg W/ Co-Ox (04/20/25 02:16) Vital Signs Date Time Temp Pulse Resp B/P (MAP) Pulse Ox O2 Delivery O2 Flow Rate FiO2 04/20/25 03:10 97.9 89 16 113/74 (87) 94 97.9 04/19/25 23:24 93 04/19/25 23:16 93 04/19/25 22:59 98.2 97 22 125/73 94 98.2 Laboratory Tests Test 04/19/25 23:36 White Blood Count 10.0 10^3/uL (4.4-10.8) Departure 1 Departure Time of Disposition: 00:21 Impression: Primary Impression: Uncontrolled diabetes mellitus with hyperglycemia Additional Impression: Dyspnea Disposition: ADMITTED INPATIENT Admit to: [facility] Condition: Guarded Discharged With: Self Critical Care Note Critical Care Time?: Yes (35 min-critical care time only) I personally scribed for OTTONIEL TORRES DO ([email or web address]) on 04/19/25 at 23:18. Electronically submitted by Nimesh Amaya ([email or web address]). I personally scribed for OTTONIEL TORRES DO ([email or web address]) on 04/19/25 at 23:24. Electronically submitted by Nimesh Amaya ([email or web address]). I personally scribed for OTTONIEL TORRES DO ([email or web address]) on 04/20/25 at 05:20. Electronically submitted by Nimesh Amaya ([email or web address]). OTTONIEL TORRES DO Apr 19, 2025 23:18
[2025-04-20 00:07] LABS: Albumin 4.6 g/dL (3.2-4.8); Alkaline Phosphatase 98 U/L (46-116); Anion Gap 14 (5-15); BUN/Creatinine Ratio 12.5 (10.0-20.0); Bilirubin, Total 0.5 mg/dL (0.2-1.0); Blood Urea Nitrogen 19 mg/dL (9-23); Calcium 9.3 mg/dL (8.7-10.4); Carbon Dioxide 25 mmol/L (20-31); Magnesium 1.6 mg/dL (1.6-2.6); Total Protein 7.4 g/dL (5.7-8.2)
[2025-04-20 00:09] LABS: Hematocrit 41.3 % (36.0-46.0); Hemoglobin 13.8 g/dL (12.2-16.2); Mean Corpuscular Hemoglobin 29.9 pg (28.0-32.0); Mean Corpuscular Volume 89.7 fL (80.0-100.0); Nucleated Red Blood Cells % 0.1 %
[2025-04-20 00:15] LABS: Chloride 90 mmol/L (98-107); Potassium 3.3 mmol/L (3.5-5.1); Sodium 129 mmol/L (136-145)
[2025-04-20 00:16] LABS: Alanine Aminotransferase 135 U/L (7-40); Glucose 535 mg/dL (74-106)
--- NOTE | 2025-04-20 02:35 | DVH ---
CHEST RADIOGRAPH Indication: sob Technique: Single frontal view of the chest was obtained Comparison: None FINDINGS: Lines and Tubes: None Lungs: No focal consolidation. Pleura: No effusion. No pneumothorax. Cardiomediastinal contours: Unremarkable Bones: No acute osseous abnormality. IMPRESSION: 1. No acute cardiopulmonary disease.
[2025-04-20 02:45] LABS: Base Excess 0.2 mmol/L (-2.0-3.0)
--- NOTE | 2025-04-20 04:09 | DVH ---
Procedure: CT CT ANGIO CHEST CONTRAST Reason for study/Clinical History: sob Comparison Study: None Exam Date: 04/20/2025 02:[address] Angio Chest with Contrast TECHNIQUE: Multiple axial CT images of chest was performed following intravenous contrast administrat ion and coronal reformatting was performed. 3-D/MIP images were obtained. Radiation Dose : CTDI volume is 28.79 mGy. Dose-length product is 1112.76 mGy*cm FINDINGS: Pulmonary Arteries: There are no filling defects within main, lobar, segmental and visualized subsegm ental branch pulmonary arteries. There is normal dimensional of main PA. Lungs: There is no peripheral pulmonary infarction, consolidation, pleural effusion, or right heart strain. There is no pneumothorax or pneumomediastinum. Aorta and Vasculature: There is normal caliber of thoracic aorta without evidence of aortic dissecti on, intramural hematoma or aneurysm. Lymph Nodes: There is no significant intrathoracic or axillary lymphadenopathy on CT size criteria. Lower Neck: Visualized portions of the thyroid gland are unremarkable. Mediastinum: Heart size is normal. There is no pericardial effusion. The esophagus is unremarkabl e. Musculoskeletal: No aggressive focal bony lesions, acute fractures or dislocation. Chest wall: Unremarkable Partially visualized upper abdomen is grossly unremarkable. IMPRESSION: No evidence of acute or chronic pulmonary embolism. END IMPRESSION: All CT scans at this medical facility are performed using dose modulation techniques as appropriate t o a performed exam including the following: Automated exposure control was utilized; adjustment of th e MA and/or KV according to patient size; and use of iterative reconstruction technique.
[2025-04-20 04:54] LABS: Urine Protein, UAD TRACE (Negative)
[2025-04-20] MEDS: IOHEXOL 350 MG/ML 100ML IJ ONE (05:55)
[2025-04-20] MEDS: INSULIN LISPRO (HUMAN) 100 UNITS/ML ML SC ONE (06:29)
[2025-04-20 08:07] VITALS: PULSE 91; RESP 16; O2SAT 97
[2025-04-20] MEDS: SODIUM CHLORIDE 0.9% 1,000 ML IV ONE (08:15)
[2025-04-20] MEDS: INSULIN LANTUS (GLARGINE) 1 /0.01ml (100units/ml) SC ONE (08:25)
[2025-04-20] MEDS: ONDANSETRON HCL 4 MG/2 ML VIAL IV ONE (08:25)
[2025-04-20 09:41] VITALS: BP 107/74; PULSE 89; RESP 17; TEMP 97; O2SAT 96
--- NOTE | 2025-04-20 15:11 | DVHDS2 ---
Physician Discharge Progress N Final Diagnosis: Uncontrplled diabetes Operations or Procedures: Operations or Procedures none Other Interventions Other Interventions lab results, CXR, CTA, EKG Consultations: Consultations none Commentary: Commentary 59 y.o. female with DM arrived to the ER c/o elevated blood glucose level along with nausea and SOB. She informed that she usually takes Metformin and her blood glucose level is usually around 200 in AM. On arrival her BG was 500. Patient c/o SOB and CTA was done to r/o PE. CTA was negative. Patient was given Insulin to lower her BG. 10 units of Lispro and 15 units of Lantus. It lower her BG down to 304. Patient was advised to have an appointment with an international trade analyst to develop an efficient medication schedule to keep BG level under control to prevent possible complications. Patient agreed. SHe was discharged in stable condition. Condition on Discharge: Stable Disposition: Home SNF Discharge Will this Physician continue t: No Discharge Instructions: Diet: Consistent carbohydrate Activity: No Restrictions, As Tolerated Follow Up/Referral: Access Liaison outpatient appointment will be schaduled by Zoila. Zoila will contact the patient to coordinate the date and time Medications: Continue home medications Follow Up Care: Discharge Statement: "Patient was advised to return to the ER or call 911 if any headaches, dizziness, shortness of breath, chest pain, abdominal pain, bleeding, fevers, or worsening of medical condition. Patient was counseled about treatment plan, medications, possible side effects, patientverbalized understanding. All questions were answered to the best of my ability. This discharge took greater then 30 minutes in planning, reviewing documentation, counseling the patient, and discussing with other team members." ZAIN OQUENDO MD Apr 20, 2025 15:11
--- NOTE | 2025-04-23 08:23 | ECG ---
[facility] Test Date: 2025-04-20 Test Time: 08:49:59 Pat Name: NETTIE STEPHENS Department: ED Room: Gender: F Ambulance Operations Supervisor: atif : 1965 Requested By: OTTONIEL TORRES Order Number: [id number] Reading MD: Measurements Intervals [place] Rate: 90 P: 50 SC: 145 QRS: 42 QRSD: 104 T: 33 QT: 428 QTc: 524 Interpretive Statements Sinus rhythm Low voltage, precordial leads Prolonged QT interval Please click the below link to view image of tracing.
== END 2025-04-20 09:50 | disposition home or self-care (01) ==
LOC: ER 22:58
DX: E11.65 Type 2 diabetes mellitus with hyperglycemia (principal); R06.00 Dyspnea, unspecified; E78.5 Hyperlipidemia, unspecified; Z90.49 Acquired absence of other specified parts of digestive tract
CPT/HCPCS: 36415; 36600; 71045; 71275; 80053; 81001; 82010; 82805; 82947; 83735; 83880; 84484; 85025; 85379; 93005; 96361; 96372; 96374; 99285; J1815; J2405; J7030; Q9967; 82962

== ENCOUNTER 2025-04-27 23:20 | Emergency (ER) | payer OTHER ==
[~2025-04-27] VITALS: Ht 144.8 cm; Wt 96.3 kg
--- NOTE | 2025-04-27 23:53 | ED.PDOC ---
History of present illness HPI Comments 59-year-old female who came to ER for hyperglycemia. Patient has a history of diabetes, states she has good compliance to her prescribed medications. Was admitted here last week for uncontrolled diabetes, discharge improved. However at home patient is still having episodes of polydipsia and polyuria, blood sugar noted to be elevated, read "high" on the monitor Chief Complaint: Hyperglycemia Time Seen by MD: 23:53 History of present illness: Nurses Notes Allergies: Coded Allergies: NO KNOWN ALLERGIES (Unverified , 05/25/24) Home Meds Active Scripts Docusate Sodium (Colace) 100 Mg Cap, 1 CAP PO BID, #30 CAP Prov:DINO BRYANT MD 12/24/24 Polyethylene Glycol 3350 (Miralax) 17 Gm Pow, 17 GM PO DAILY PRN for 3 Days, #3 POW Prov:DINO BRYANT MD 12/24/24 Pantoprazole Sodium Sesquihydr (Protonix) 40 Mg Tab, 40 MG PO DAILY for 5 Days, #5 TAB Prov:ODILIA DAWN MD 06/11/24 Nitrofurantoin Monohydrate Mac (Macrobid) 100 Mg Cap, 100 MG PO BID for 10 Days, #20 CAP Prov:ODILIA DAWN MD 06/11/24 Sulfamethoxazole W/Trimethopri (Bactrim Ds Tablet) 1 Tab Tb, 1 TAB PO BID for 10 Days, #20 TAB Prov:TIA CARLOS MD 05/26/24 Reported Medications Amlodipine Besylate (NORVASC TABLET) 5 Mg Tb, 1 TAB PO DAILY, #30 TAB 5 Refills 05/25/24 Lisinopril (Lisinopril) 20 Mg Tab, 0.5 TAB PO DAILY, #30 TAB 5 Refills 05/25/24 Levothyroxine Sodium (SYNTHROID TABLET) 100 Mcg Tb, 1 TAB PO DAILY, #30 TAB 5 Refills 05/25/24 Metformin Hydrochloride (Metformin Hcl) 500 Mg Tab, 1 TAB PO BID, #60 TAB 3 Refills 05/25/24 Information Source: Patient Mode of Arrival: Ambulatory Timing: Days Duration: Since onset [place]: Shaky, Sweaty Symptoms: Anxious, Shaky, Sweaty History of: Diabetes, Oral hypoglycemic use Past Medical History PAST MEDICAL HISTORY: DM, High Lipids, Thyroid Surgical History: Cholecystectomy [employer] History: No Pertinent [employer] History Family History Family History: Reviewed,noncontributory to illness Social History Smoker: Non-Smoker Alcohol: Denies ETOH Use Drugs: Denies Drug Use Lives In: Home Constitutional: reports: weakness; denies: chills, diaphoresis, fatigue, fever, malaise, sweats, others EENTM: denies: blurred vision, double vision, ear bleeding, ear discharge, ear drainage, ear pain, ear ringing, eye pain, eye redness, hearing loss, mouth pain, mouth swelling, nasal discharge, nose bleeding, nose congestion, nose pain, photophobia, tearing, throat pain, throat swelling, voice changes, others Respiratory: denies: cough, hemoptysis, orthopnea, SOB at rest, shortness of breath, SOB with excertion, stridor, wheezing, others Cardiovascular: denies: chest pain, dizzy spells, diaphoresis, Dyspnea on exertion, edema, irregular heart beat, left arm pain, lightheadedness, palpitations, PND, syncope, others Gastrointestinal: denies: abdomen distended, abdominal pain, blood streaked bowels, constipated, diarrhea, dysphagia, difficulty swallowing, hematemesis, melena, nausea, poor appetite, poor fluid intake, rectal bleeding, rectal pain, vomiting, others Genitourinary: denies: abnormal vagina bleeding, burning, dyspareunia, dysuria, flank pain, frequency, hematuria, incontinence, pain, , vagina discharge, urgency, others Neurological: denies: dizziness, fainting, headache, left sided numbness, left sided weakness, numbness, paresthesia, pre-existing deficit, right sided numb ness, right sided weakness, seizure, speech problems, tingling, tremors, weakness, others Musculoskeletal: denies: back pain, gout, joint pain, joint swelling, muscle pain, muscle stiffness, neck pain, others Integumetry: denies: bruises, change in color, change in hair/nails, dryness, laceration, lesions, lumps, rash, wounds, others Allergic/Immunocompromised: denies: Difficulty Healing, Frequent Infections, Hives, Itching, others Hematologic/Lymphatic: denies: anemia, blood clots, easy bleeding, easy bruising, swollen glands, others Endocrine: reports: excessive thirst, excessive urination; denies: excessive hunger, excessive sweating, flushing, intolerance to cold, intolerance to heat, unexplained weight gain, unexplained weight loss, others Psychiatric: denies: anxiety, bipolar disorder, depression, hopeless, panic disorder, schizophrenia, sleepless, suicidal, others Physical Exam General Appearance: No Apparent Distress, Normal HEENT: Normal ENT Inspection, Pharynx Normal, TMs Normal Neck: Full Range of Motion, Non-Tender, Normal, Normal Inspection Respiratory: Chest Non-Tender, Lungs Clear, No Accessory Muscle Use, No Respiratory Distress, Normal Breath Sounds Cardiovascular: No Edema, No JVD, No Murmur, No Gallop, Normal Peripheral Pulses, Regular Rate/Rhythm Breast Exam: Deferred Gastrointestinal: No Organomegaly, Non Tender, No Pulsatile Mass, Normal Bowel Sounds, Soft Genitalia: Deferred Pelvic: Deferred Rectal: Deferred Extremities: No calf tenderness, Normal capillary refill, Normal inspection, Normal range of motion, Non-tender, No pedal edema Musculoskeletal : Apperance: Normal Neurologic: Alert, treatment specialist II-XII nml as Tested, No Motor Deficits, Normal Affect, Normal Mood, No Sensory Deficits Cerebellar Function: Normal Reflexes: Normal Skin: Dry, Normal Color, Warm Lymphatic: No Adenopathy Was a procedure done? Was a procedure done?: No Differential Diagnosis (DM) Differential Diagnosis: DKA, Gastritis, Gastroenteritis, Hyperglycemia, UTI X-Ray, Labs, Meds, VS Vital Signs Date Time Temp Pulse Resp B/P (MAP) Pulse Ox O2 Delivery O2 Flow Rate FiO2 04/28/25 01:05 92 18 130/78 (95) 92 04/28/25 00:13 90 04/27/25 23:21 97.7 92 18 130/78 94 97.7 Lab Test 04/27/25 23:57 04/27/25 23:52 04/27/25 23:37 04/27/25 23:35 Range/Units White Blood Count 7.3 4.4-10.8 10^3/uL Red Blood Count 4.18 4.0-5.20 10^6/uL Hemoglobin 12.5 12.2-16.2 g/dL Hematocrit 38.3 36.0-46.0 % Mean Corpuscular Volume 91.5 80.0-100.0 fL Mean Corpuscular Hemoglobin 30.0 28.0-32.0 pg Mean Corpuscular Hemoglobin Concent 32.8 32.0-36.0 g/dL Red Cell Distribution Width 17.2 H 11.8-14.3 % Platelet Count 198 140-450 10^3/uL Mean Platelet Volume 10.6 6.9-10.8 fL Neutrophils (%) (Auto) 67.7 37.0-80.0 % Lymphocytes (%) (Auto) 19.5 10.0-50.0 % Monocytes (%) (Auto) 9.0 0.0-12.0 % Eosinophils (%) (Auto) 3.0 0.0-7.0 % Basophils (%) (Auto) 0.8 0.0-2.0 % Neutrophils # (Auto) 5.0 1.6-8.6 10 ^3/uL Lymphocytes # (Auto) 1.4 0.4-5.4 10 ^3/uL Monocytes # (Auto) 0.7 0-1.3 10 ^3/uL Eosinophils # (Auto) 0.2 0-0.8 10 ^3/uL Basophils # (Auto) 0.1 0-0.2 10 ^3/uL Nucleated Red Blood Cells 0.1 % Sodium Level 126 L 136-145 mmol/L Potassium Level 4.5 3.5-5.1 mmol/L Chloride Level 92 L 98-107 mmol/L Carbon Dioxide Level 24 20-31 mmol/L Anion Gap 10 5-15 Blood Urea Nitrogen 7 L 9-23 mg/dL Creatinine 1.56 H 0.550-1.02 mg/dL Glomerular Filtration Rate Calc 38 >90 mL/min BUN/Creatinine Ratio 4.5 L 10.0-20.0 Serum Glucose 534 *H 74-106 mg/dL Calcium Level 9.0 8.7-10.4 mg/dL Total Bilirubin 0.9 0.2-1.0 mg/dL Aspartate Amino Transferase (AST) 70 H 13-40 U/L Alanine Aminotransferase (ALT) 109 H 7-40 U/L Alkaline Phosphatase 113 46-116 U/L Total Protein 6.8 5.7-8.2 g/dL Albumin 4.0 3.2-4.8 g/dL Blood Gas Specimen Type Venous Blood Gas Sample Site Vbg - n/a Blood Gas Patient Temperature 37.0 Arterial Blood Date Drawn [id number] Wil Test N/a Venous Blood pH 7.438 H 7.320-7.430 Venous Blood pCO2 at Patient Temp 36.5 L 38.0-54.0 mmHg Venous Blood pO2 at Patient Temp 60.4 H 23.0-48.0 mmHg Venous Blood HCO3 24.1 22.0-29.0 mmol/L Venous Blood Base Excess 0.3 -2.0-3.0 mmol/L Blood Gas Modality Room air FiO2 % 21.0 POC Glucose 531 *H 531 *H 70-106 mg/dl Current Medications Medications (Trade) Dose Ordered Sig/Benny Route Start Time Stop Time Status Last Admin Sodium Chloride 1,000 ml @ 1,000 mls/hr Q1H ONCE IV 04/27/25 23:45 04/28/25 00:44 DC 04/28/25 00:57 Insulin Human Regular (InsuLIN R) 4 units ONCE ONCE SC 04/27/25 23:45 04/27/25 23:46 DC 04/28/25 00:58 Time of 1ST Reevaluation: 23:51 Reevaluation 1ST: Unchanged Patient Education/Counseling: Diagnosis, Treatment Family Education/Counseling: No Family Present SEPSIS Sepsis Screen Date sepsis recognized/suspect: Apr 27, 2025 Time Sepsis recognized/suspect: 2320 Recent Procedure: No On Antibiotic Therapy: No Respiratory Rate >20: No Heart Rate >90: No Temp<36 C (96.8 F) or >38.3 C: No SBP <90 or MAP <65 mmHG: No New Acute Mental Status Change: No Is the patient on CPAP, BIPAP,: No Physician Orders Chest Portable (04/27/25 23:34) Urinalysis (04/27/25 23:34) Electrocardigram (04/27/25 23:34) Venous Blood Gas (04/27/25 23:38) Blood Glucose Q2h (04/27/25 23:39) Vital Signs Date Time Temp Pulse Resp B/P (MAP) Pulse Ox O2 Delivery O2 Flow Rate FiO2 04/28/25 01:05 92 18 130/78 (95) 92 04/28/25 00:13 90 04/27/25 23:21 97.7 92 18 130/78 94 97.7 Laboratory Tests Test 04/27/25 23:57 White Blood Count 7.3 10^3/uL (4.4-10.8) Medications Medications Dose Ordered Sig/Benny Route Start Time Stop Time Status Last Admin Dose Admin Insulin Human Regular 4 units ONCE ONCE SC 04/27/25 23:45 04/27/25 23:46 DC 04/28/25 00:58 Sodium Chloride 1,000 ml @ 1,000 mls/hr Q1H ONCE IV 04/27/25 23:45 04/28/25 00:44 DC 04/28/25 00:57 Departure 1 Departure Time of Disposition: 02:43 Impression: Primary Impression: Hyperglycemia Additional Impressions: Uncontrolled diabetes mellitus with hyperglycemia Acute renal injury Disposition: ADMITTED INPATIENT Admit to: Med Surg Condition: Guarded Comments 59-year-old female with a history of type 2 diabetes now with severe hyperglycemia. Lab results reviewed. Glucose did not improve significantly it went from 531-534. Patient was given IV fluids and insulin. She has h yponatremia 126. Also acute renal injury with BUN creatinine of 7 and 1.56. Patient will need to be admitted for supportive care and further workup. Critical Care Note Critical Care Time?: Yes (35 min-critical care time only) Critical care comment: HyperglycemiaTotal critical care time: Approximately 36 minutes Due to a high probability of clinically significant, life threatening deterioration, the patient required my highest level of preparedness to intervene emergently and I personally spent this critical care time directly and personally managing the patient. This critical care time included obtaining a history; examining the patient; pulse oximetry; ordering and review of studies; arranging urgent treatment with development of a management plan; evaluation of patient's response to treatment; frequent reassessment; and, discussions with other providers. This critical care time was performed to assess and manage the high probability of imminent, life-threatening deterioration that could result in multi-organ failure. It was exclusive of separately billable procedures and treating other patients. Stability Stability form required: No Heart Score Heart Score: Heart Score Response (Comments) Value History N/A 0 EKG N/A 0 Age N/A 0 Risk Factors N/A 0 Troponin N/A 0 Total 0 I personally scribed for CECILIA SUERO MD ([email or web address]) on 04/27/25 at 23:53. Electronically submitted by Nimesh Amaya ([email or web address]). CECILIA SUERO MD Apr 27, 2025 23:53
[2025-04-28 00:15] LABS: Hematocrit 38.3 % (36.0-46.0); Hemoglobin 12.5 g/dL (12.2-16.2); Mean Corpuscular Hemoglobin 30.0 pg (28.0-32.0); Mean Corpuscular Volume 91.5 fL (80.0-100.0); Nucleated Red Blood Cells % 0.1 %
[2025-04-28 00:31] LABS: Albumin 4.0 g/dL (3.2-4.8); Alkaline Phosphatase 113 U/L (46-116); Anion Gap 10 (5-15); BUN/Creatinine Ratio 4.5 (10.0-20.0); Calcium 9.0 mg/dL (8.7-10.4); Carbon Dioxide 24 mmol/L (20-31); Potassium 4.5 mmol/L (3.5-5.1); Total Protein 6.8 g/dL (5.7-8.2)
[2025-04-28 00:32] LABS: Bilirubin, Total 0.9 mg/dL (0.2-1.0); Chloride 92 mmol/L (98-107); Sodium 126 mmol/L (136-145)
[2025-04-28 00:33] LABS: Alanine Aminotransferase 109 U/L (7-40); Blood Urea Nitrogen 7 mg/dL (9-23)
[2025-04-28 00:37] LABS: Glucose 534 mg/dL (74-106)
[2025-04-28] MEDS: SODIUM CHLORIDE 0.9% 1,000 ML IV ONE ×4 (00:57→15:03)
[2025-04-28] MEDS: InsuLIN REG 1unit/0.01ml Soln (100units/ml) SC ONE (00:58)
--- NOTE | 2025-04-28 02:16 | DVH ---
CHEST RADIOGRAPH Indication: SOB Technique: Single frontal view of the chest was obtained COMPARISON: CT CT ANGIO CHEST CONTRAST on DOS: 04/20/25, XY CHEST PORTABLE on DOS: 04/19/25 FINDINGS: Lines and Tubes: None Lungs: Clear Pleura: No effusion. No pneumothorax. Cardiomediastinal contours: Unremarkable Bones: Unremarkable IMPRESSION: 1. No acute disease.
[2025-04-28 07:37] LABS: Urine Protein, UAD Negative (Negative)
[2025-04-28] MEDS ORDERED: METF-372 PO (12:01)
[2025-04-28] MEDS: InsuLIN REG 1unit/0.01ml Soln (100units/ml) IV ONE ×3 (12:33→16:37)
[2025-04-28] MEDS ORDERED: GLIP10TA9 PO (14:31)
[2025-04-28 16:35] VITALS: BP 139/83; PULSE 86; RESP 16; TEMP 97.8; O2SAT 95
--- NOTE | 2025-05-02 14:17 | ECG ---
[facility], [place] Test Date: 2025-04-28 Test Time: 00:13:41 Pat Name: NETTIE STEPHENS Department: ED Room: Gender: F Human Resources Office Assistant: RITESH : 1965 Requested By: CECILIA SUERO Order Number: [id number] Reading MD: Vito Ruvalcaba Measurements Intervals [place] Rate: 90 P: 65 MT: 149 QRS: 51 QRSD: 93 T: 30 QT: 367 QTc: 449 Interpretive Statements Sinus rhythm Low voltage, precordial leads Electronically Signed On 05-03-2025 14:50:04 PDT by Vito Ruvalcaba Please click the below link to view image of tracing.
== END 2025-04-28 16:37 | disposition home or self-care (01) ==
LOC: ER 23:20
DX: E11.65 Type 2 diabetes mellitus with hyperglycemia (principal); N17.9 Acute kidney failure, unspecified; Z79.899 Other long term (current) drug therapy; Z90.49 Acquired absence of other specified parts of digestive tract
CPT/HCPCS: 36415; 36600; 71045; 80053; 81001; 82805; 82947; 83036; 85025; 93005; 96361; 96372; 96374; 96376; 99285; J1815; J7030; 82962; 99291